=== PATIENT | male | born 1995 | race African-American/Black ===

== ENCOUNTER 2017-09-24 21:26 | Emergency (ER) | payer OTHER ==
--- NOTE | 2017-09-24 21:32 | PDOC ---
History of Present Illness - General History Source: Patient Exam Limitations: No Limitations <Tato Mix I - Last Filed: 09/24/17 21:49> - History of Present Illness Initial Comments: 09/24/17 21:45 The patient is a 22 year old male, with no significant past medical history, who presents to the emergency department with sore throat since this morning. Patient state he began experiencing a sore throat after eating and says that it feels like his throat is swollen/closing. He also says he feels sick involving congestion and a runny nose but denies cough. He also reports associated headache. Denies recent changes to diet. Denies recent sick contacts. Denies h/ o asthma or allergies. He denies any recent fevers, chills, or dizziness. He denies any recent nausea, vomit, diarrhea or constipation. He denies any recent chest pain or shortness of breath. Allergies: NKDA Past surgical history: None reported. Social History: Nonsmoker. Denies EtOH use and recreational drug use. ROS General: No fevers or chills, no weakness, no weight loss HEENT: No change in vision. +sore throat, No ear pain Cardiovascular: No chest pain or shortness of breath Respiratory:No cough, or wheezing. Gastrointestinal: No nausea, vomiting, diarrhea or constipation, No rectal bleeding Genitourinary: No dysuria, hematuria, or frequency Musculoskeletal: No joint or muscle pain or swelling Neurologic: +headache, no vertigo, dizziness or loss of consciousness Psychiatric: No depression Skin: No rashes or easy bruising Endocrine: No increased thirst or abnormal weight change Allergic: No skin or latex allergy All other systems reviewed and normal PE GENERAL: The patient is awake, alert, and fully oriented, in no acute distress. HEENT: Normal, Mild erythema in the posterior pharynx. No exudates. No angioedema. Neck: Supple, no meningeal signs, no lymphadenopathy Eyes:Pupils equal reactive and round, extraocular motion intact EXTREMITIES: Normal range of motion, no edema. NEUROLOGICAL: Normal speech, normal gait. PSYCH: Normal mood, normal affect. SKIN: Warm, Dry, normal turgor, no rashes or lesions noted. <Emerita Pradhan - Last Filed: 09/24/17 22:17> - General Chief Complaint: Sore Throat Stated Complaint: SORE THROAT Time Seen by Provider: 09/24/17 21:29 Past History <Tato Mix I - Last Filed: 09/24/17 21:49> <Emerita Pradhan - Last Filed: 09/24/17 22:17> - Past Medical History Allergies/Adverse Reactions: Allergies Allergy/AdvReac Type Severity Reaction Status Date / Time No Known Allergies Allergy Unverified 09/24/17 21:30 Home Medications: Ambulatory Orders NK [No Known Home Medication] 09/24/17 Review of Systems - Review of Systems Comments:: 09/24/17 21:46 see HPI <Emerita Pradhan - Last Filed: 09/24/17 22:17> *Physical Exam - Vital Signs Last Vital Signs Temp Pulse Resp BP Pulse Ox 98.2 F 80 16 147/98 100 09/24/17 21:30 09/24/17 21:30 09/24/17 21:30 09/24/17 21:30 09/24/17 21:30 - Physical Exam Comments: 09/24/17 21:46 see HPI <Emerita Pradhan - Last Filed: 09/24/17 22:17> *DC/Admit/Observation/Transfer - Discharge Dispostion Admit: No <Tato Mix I - Last Filed: 09/24/17 21:49> - Attestations Scribe Attestion: 09/24/17 21:47 Documentation prepared by Emerita Pradhan, acting as bilingual medical receptionist for Tato Mix MD. <Emerita Pradhan - Last Filed: 09/24/17 22:17> Diagnosis at time of Disposition: Viral pharyngitis - Discharge Dispostion Disposition: HOME Condition at time of disposition: Stable - Patient Instructions Additional Instructions: Tylenol or Motrin as needed for body aches, headache or fevers. Stay well hydrated and get your rest your symptoms will likely progress into a upper respiratory illness/cold. Return to the emergency department immediately with ANY new, persistent or worsening symptoms. Continue any medications as previously prescribed by your physician. You should follow up with your primary doctor as soon as possible regarding today's emergency department visit. . Please make sure your doctor reviews the results of your emergency evaluation. Thank you for coming to the Emergency Department today for your care. It was a pleasure to see you today. Please note that your evaluation is INCOMPLETE until you follow-up with your doctor.
[2017-09-24 21:49] VITALS: BP 147/98; PULSE 80; TEMP 98.2; BMI 27.8
[2017-09-24] MEDS ORDERED: ONDANSETRON *ODT* 4 MG TABLET ONE (22:13)
[2017-09-24] MEDS ORDERED: ONDANSETRON *ODT* 4 MG TABLET SL ONE (22:13)
== END 2017-09-24 22:15 | disposition home or self-care (01) ==
LOC: FER 21:26
DX: J02.8 Acute pharyngitis due to other specified organisms (principal); B97.89 Other viral agents as the cause of diseases classified elsewhere
CPT/HCPCS: 99281-25

== ENCOUNTER 2017-12-27 20:01 | Emergency (ER) | payer OTHER ==
[2017-12-27 20:16] VITALS: BP 166/94; PULSE 80; TEMP 98.3; BMI 26.7
--- NOTE | 2017-12-27 20:20 | PDOC ---
History of Present Illness - General History Source: Patient Exam Limitations: No Limitations - History of Present Illness Initial Comments: 12/27/17 20:35 CC: Pain to the left knee. HPI: The patient is a 22 year old male, with no significant past medical history, who presents to the emergency department with, pain to the left knee. 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 He reports that his pain worsens when standing, walking, and bending the knee. He denies any recent fevers, chills, headache or dizziness. He denies any recent nausea, vomit, diarrhea or constipation. He denies any recent chest pain or shortness of breath. He denies any recent dysuria, frequency, urgency or hematuria. Allergies: NKA Past surgical history: None reported. Social History: Nonsmoker. Denies EtOH use and recreational drug use. <Katerina Durham - Last Filed: 12/27/17 20:51> <Sam Washington - Last Filed: 12/28/17 06:18> - General Chief Complaint: Injury Stated Complaint: LEFT KNEE PAIN Time Seen by Provider: 12/27/17 20:05 Past History <Katerina Durham - Last Filed: 12/27/17 20:51> - Past Medical History COPD: No - Immunization History Immunization Up to Date: Yes - Suicide/Smoking/Psychosocial Hx Smoking History: Never smoked Hx Alcohol Use: No Drug/Substance Use Hx: No Substance Use Type: None <Sam Washington - Last Filed: 12/28/17 06:18> - Past Medical History Allergies/Adverse Reactions: Allergies Allergy/AdvReac Type Severity Reaction Status Date / Time No Known Allergies Allergy Unverified 09/24/17 21:30 Home Medications: Ambulatory Orders NK [No Known Home Medication] 09/24/17 Review of Systems - Review of Systems Able to Perform ROS?: Yes Comments:: 12/27/17 20:35 ROS: A complete review of 10 out of 10 review of systems is taken and is negative apart from what is previously mentioned below and in the HPI. <Katerina Durham - Last Filed: 12/27/17 20:51> *Physical Exam - Vital Signs Last Vital Signs Temp Pulse Resp BP Pulse Ox 98.3 F 80 16 166/94 98 12/27/17 20:02 12/27/17 20:02 12/27/17 20:02 12/27/17 20:02 12/27/17 20:02 - Physical Exam Comments: 12/27/17 20:36 Vitals: Triage vital signs reviewed General Appearance: No acute distress, well nourished, well developed Head: Atraumatic Extremities: Tenderness to palpation of the vastus lateralis. Mild peripatellar inflammation. Psych: Normal mood, normal affect <Katerina Durham - Last Filed: 12/27/17 20:51> - Vital Signs Last Vital Signs Temp Pulse Resp BP Pulse Ox 98.3 F 80 16 166/94 98 12/27/17 20:02 12/27/17 20:02 12/27/17 20:02 12/27/17 20:02 12/27/17 20:02 <Sam Washington - Last Filed: 12/28/17 06:18> Medical Decision Making - Medical Decision Making 12/27/17 20:36 Patient is a 22 year old male, with no significant past medical history, who presents to the emergency department with pain to the left knee. Plan is to: Perform an X-Ray of the left knee, ice the knee, and administer ibuprofen. <Katerina Durham - Last Filed: 12/27/17 20:51> - Medical Decision Making No fracture dislocation pain is predominantly over the vastus lateralis. Likely muscular skeletal strain differential diagnosis also includes meniscal injury or intra-articular injury We'll give patient crutches, recommend ice rest NSAIDs and orthopedic follow-up Findings, need for follow-up and strict return instructions discussed with patient. <Sam Washington - Last Filed: 12/28/17 06:18> *DC/Admit/Observation/Transfer - Attestations Scribe Attestion: 12/27/17 20:37 Documentation prepared by Katerina Durham, acting as medical sales associate for Sam Washington MD. <Katerina Durham - Last Filed: 12/27/17 20:51> - Discharge Dispostion Admit: No <Sam Washington - Last Filed: 12/28/17 06:18> Diagnosis at time of Disposition: Knee sprain Qualifiers: Encounter type: initial encounter Involved ligament of knee: unspecified ligament Laterality: left Qualified Code(s): S83.92XA - Sprain of unspecified site of left knee, initial encounter - Discharge Dispostion Disposition: HOME Condition at time of disposition: Good - Referrals Referrals: Robbie Goodwin MD [Staff Physician] - - Patient Instructions Printed Discharge Instructions: Knee Sprain Additional Instructions: Rest. Use crutches at all times. Take 2 tabs Aleve twice a day for the next 5 days. Ice 20 minutes on 20 minutes off. Follow-up with orthopedics this week. No sports until pain free or cleared by orthopedics. - Post Discharge Activity Forms/Work/School Notes: Back to School
[2017-12-27] MEDS ORDERED: IBUPROFEN 600 MG TABLET (FP) PO ONE ×2 (20:21→20:40)
== END 2017-12-27 21:16 | disposition home or self-care (01) ==
LOC: FER 20:01
DX: S83.92XA Sprain of unspecified site of left knee, initial encounter (principal); X58.XXXA Exposure to other specified factors, initial encounter; Y93.66 Activity, soccer; Y92.89 Other specified places as the place of occurrence of the external cause
CPT/HCPCS: 73562-TC-LT-FY; 99282-25

== ENCOUNTER 2019-08-01 04:09 | Emergency (ER) | payer OTHER ==
[2019-08-01 04:18] VITALS: BP 129/80; PULSE 69; TEMP 98.4; BMI 26.2
[2019-08-01] MEDS ORDERED: IBUPROFEN 400 MG TABLET (FP) PO ONE ×2 (04:30→04:54)
--- NOTE | 2019-08-01 04:34 | PDOC ---
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 Injury Location - Specific Injury Location Ankle: left pain, left swelling Past History - Past Medical History Allergies/Adverse Reactions: Allergies Allergy/AdvReac Type Severity Reaction Status Date / Time No Known Allergies Allergy Verified 08/01/19 04:13 Home Medications: Ambulatory Orders Ibuprofen 800 mg PO TID PRN #15 tablet 08/01/19 COPD: No - Immunization History Immunization Up to Date: Yes - Psycho Social/Smoking Cessation Hx Smoking History: Never smoked Have you smoked in the past 12 months: No Information on smoking cessation initiated: No Hx Alcohol Use: No Drug/Substance Use Hx: No Substance Use Type: None Review of Systems - Review of Systems All Other Systems: Reviewed and Negative *Physical Exam - Vital Signs Last Vital Signs Temp Pulse Resp BP Pulse Ox 98.4 F 69 18 129/80 97 08/01/19 04:15 08/01/19 04:15 08/01/19 04:15 08/01/19 04:15 08/01/19 04:15 - Physical Exam General Appearance: Yes: Nourished HEENT: positive: Normal Voice Neck: negative: Lymphadenopathy (R), Lymphadenopathy (L) Respiratory/Chest: positive: Lungs Clear Lymphatic: negative: Adenopathy Musculoskeletal: positive: Other (pain and swelling of L medial ankle at malleolus) Extremity: positive: Normal Capillary Refill Medical Decision Making - Medical Decision Making 08/01/19 04:33 ankle pain required imaging nsaids 08/01/19 04:59 plain films -, as read by me, referred to radiology for definitive read Discharge - Discharge Information Problems reviewed: Yes Clinical Impression/Diagnosis: Ankle sprain Qualifiers: Encounter type: initial encounter Involved ligament of ankle: deltoid ligament Laterality: left Qualified Code(s): S93.422A - Sprain of deltoid ligament of left ankle, initial encounter Condition: Good - Follow up/Referral Referrals: Zuhair Blair MD [Staff Physician] - 1 week - Patient Discharge Instructions Patient Printed Discharge Instructions: DI for Ankle Sprain - Post Discharge Activity
== END 2019-08-01 05:02 | disposition home or self-care (01) ==
LOC: FER 04:09
DX: S93.422A Sprain of deltoid ligament of left ankle, initial encounter (principal); X50.0XXA Overexertion from strenuous movement or load, initial encounter; Y93.66 Activity, soccer; Y92.322 Soccer field as the place of occurrence of the external cause
CPT/HCPCS: 73610-TC-LT-FY; 99281-25

== ENCOUNTER 2022-12-29 21:37 | Emergency (ER) | payer OTHER ==
[2022-12-29] MEDS ORDERED: SODIUM CHLORIDE 0.9% 500 ML INFUS.BAG IV ONE ×2 (21:40→23:00)
[2022-12-29] MEDS ORDERED: FAMOTIDINE 20 MG/50 ML IVPB 20 MG/50 ML MG IVPB ONE ×2 (21:41→21:58)
[2022-12-29] MEDS ORDERED: ONDANSETRON 4 MG/2 ML VIAL IVPB ONE (21:41)
[2022-12-29 21:57] VITALS: BP 125/82; PULSE 79; RESP 17; TEMP 98.9; BMI 25.9
[2022-12-29] MEDS ORDERED: ONDANSETRON 4 MG/2 ML VIAL ONE (21:58)
[2022-12-29 22:04] LABS: HEMATOCRIT 47.7 % (35.4-49); HEMOGLOBIN 16.4 G/dL (11.7-16.9); MCH 31.7 pg (25.7-33.7); MCHC 34.4 g/dl (32.0-35.9); MEAN PLT VOLUME 7.5 fl (7.5-11.1); PLATELET COUNT 148.3 10^3/uL (134-434); RBC 5.19 10^6/uL (4.00-5.60); RDW 13.4 % (11.9-15.9)
[2022-12-29 22:13] LABS: ALBUMIN 4.9 g/dl (3.4-5.0); BILIRUBIN,TOTAL 2.6 mg/dl (0.2-1); CALCIUM 9.5 mg/dl (8.5-10); TOT PROT 8.3 g/dl (6.4-8.2)
[2022-12-29 22:17] LABS: PLATELET ESTIMATE ADEQUATE
[2022-12-29] MEDS ORDERED: ACETAMINOPHEN 500 MG TABLET (FP) PO ONE (23:00)
[2022-12-29] MEDS ORDERED: ACETAMINOPHEN 500 MG TABLET (FP) ONE (23:03)
[2022-12-29] MEDS ORDERED: LOPERAMIDE HCL 2 MG CAPSULE PO ONE (23:20)
[2022-12-29] MEDS ORDERED: LOPERAMIDE HCL 2 MG CAPSULE ONE (23:22)
== END 2022-12-29 23:27 | disposition home or self-care (01) ==
LOC: FER 21:37
PROC: 3E033GC Introduction of Other Therapeutic Substance into Peripheral Vein, Percutaneous Approach (ICD-10-PCS; principal; 2022-12-29)
PROC: 3E033GC Introduction of Other Therapeutic Substance into Peripheral Vein, Percutaneous Approach (ICD-10-PCS; 2022-12-29)
DX: A05.9 Bacterial foodborne intoxication, unspecified (principal); R11.2 Nausea with vomiting, unspecified; R51.9 Headache, unspecified
CPT/HCPCS: 36415; 80053; 85027; 99284-25